=== PATIENT | male | born 1970 | race Caucasian/White ===

== ENCOUNTER 2017-10-15 10:37 | Emergency (ER) | payer BC ==
[~2017-10-15] VITALS: Ht 175.3 cm; Wt 108.0 kg
[2017-10-15] MEDS ORDERED: ASPIR 8181 M1 PO (10:50)
[2017-10-15 11:36] LABS: HEMOGLOBIN 15.3 G/DL (12.5-16.6); MCH 29.8 PG (29.0-34.0); MCHC 35.6 G/DL (30.0-36.0); MCV 83.8 FL (86-99); PLATELET COUNT 184 K/uL (156-360); RBC DIS.WIDTH-CV 12.7 % (11.8-14.6); RBC DIS.WIDTH-SD 38.5 % (39-53); RED BLOOD COUNT 5.13 M/uL (4.00-5.50); WHITE BLOOD COUNT 6.1 K/uL (4.1-10.2)
[2017-10-15 11:43] LABS: ALBUMIN 4.3 g/dL (3.2-4.8)
[2017-10-15 11:44] LABS: CHLORIDE 105 mEq/L (99-109); POTASSIUM 3.8 mEq/L (3.7-5.4); SODIUM 138 mEq/L (136-147)
[2017-10-15 11:46] LABS: GLUCOSE 97 mg/dL (70-99)
[2017-10-15 11:48] LABS: TOTAL BILIRUBIN 0.7 mg/dL (0.0-1.0)
[2017-10-15 11:49] LABS: ALKALINE PHOSPHATASE 33 IU/L (3-129)
[2017-10-15 11:50] LABS: CREATININE 1.1 mg/dL (0.6-1.3); GFR ESTIMATE (CALCULATED) > 59 mL/min/ (58.99-99999)
[2017-10-15 11:51] LABS: AST (GOT) 23 IU/L (2-34); UREA NITROGEN (BUN) 14 mg/dL (9-23)
[2017-10-15 11:53] LABS: ALT (GPT) 46 IU/L (3-49); LIPASE 7 U/L (1.0-51.0)
[2017-10-15] MEDS ORDERED: ZOFRAN ODT4 MG PO (13:45)
[2017-10-15] MEDS ORDERED: BENTYL20 MG PO (13:57)
[2017-10-15 14:21] VITALS: BP 134/67
== END 2017-10-15 14:22 | disposition home or self-care (01) ==
LOC: EME 10:37
PROVIDERS: Nurse Practitioner Family
DX: R10.11 Right upper quadrant pain (principal); R11.2 Nausea with vomiting, unspecified; R19.7 Diarrhea, unspecified; K21.9 Gastro-esophageal reflux disease without esophagitis; Z79.82 Long term (current) use of aspirin
CPT/HCPCS: 74177; 80053; 83690; 85027; 99281; 99285; J1885; J7030